=== PATIENT | female | born 1990 | race Caucasian/White ===

== ENCOUNTER → 2017-06-22 23:04 | Observation (INO) ==
--- NOTE | 2017-06-22 19:46 | OB/GYN Progress Note ---
Date of Encounter: 06/22/17 Time of Encounter: 19:20 - Assessment and Plan (1) 37 weeks gestation of Current Visit: Yes Status: Acute - NST assessment. (2) LUQ pain Current Visit: Yes Status: Acute Given location of pain on L side with radiation to L flank side and positive L CVA tenderness, it is possible patient might present with nephrolithiasis. Acute pancreatitis also possibility. Cholecystits unlikely given location of pain and negative martínez's sign. Biliary colic unlikely given duration of pain. Appendicitis unlikely given location of pain and negative McBurney's test. Dyspepsia v. GERD possibility. - PIH labs. - Amylase, lipase - RUQ and retroperitoneum U/S - IV LR 1000 ml bolus - Zofran 4mg IVP - maalox Update: Abdominal U/S reveals Cholelithiasis with dilated common bile duct 6 6 mm. No evidence of wall thickening or pericholecystic fluid. No hydronephrosis. She is afebrile and normotensive. WBC slightly elevated at 17.7 for . Amylase and lipase within normal limits. Small trace of LE in urine. Culture will be done. Mild urine protein. Patient feeling much better after taking maalox and currently denies any pain. Reactive NST. - Ranitidine - Zofran - Diet modification: instructed patient to eat smaller portions and avoid food high in fat. Subjective - Subjective Principal diagnosis: Left upper abdominal pain Interval history: Patient is a 27 yo F and 37 6/7 wks gestation that presents for L upper abdominal pain. She says the pain started 1100 pm last night, a few hours after she had some dinner. She describes it as sharp, constant, radiates to L flank area, and rates it as a 8/10 in pain scale. The pain continued until 930 am in the morning and started again noon, a few hours after eating. She says the pain is not relieved or aggravated by position. She currently does not complain of pain. She admits to nausea and vomiting, but denies any hematemesis. She denies any fever dysuria, hematurea, or diarrhea. She admits to good movement. She denies contractions. Denies vaginal fluid leakage or bleeding. She denies headaches, vision changes, or chest pain. Antepartum ROS: movement normal, no loss of fluid, no vaginal bleeding, no contractions Objective - Vital Signs Vital Signs: Intake and Output 06/22/17 06/22/17 06/22/17 07:59 15:59 23:59 Other: Weight 87.4 kg Patient Weight 06/22/17 23:59 Weight 87.4 kg BP: 126/68 Pulse: 81 FHR: 137 [place]: 20 - Exam FHR: auscultation normal Auscultation: bilateral: normal Abdomen: Present: normal appearance, soft, gravid, tenderness (LUQ tenderness to deep palpation. ), other (Negative Martínez's sign. Negative McBurney's point. ) Comments: Positive CVA tenderness on the L.
[2017-06-22 20:05] LABS: Basophils % 0.2 %; Eosinophils % 0.2 %; Hematocrit 32.5 % (35.3-44.9); Hemoglobin 10.3 g/dL (11.5-15.4); Immature Platelets 6.4 % (1.1-6.1); Lymphocytes # 2.1 K/mcL (0.6-4.6); Lymphocytes % 11.6 %; Mean Corpuscular HGB Conc 31.7 g/dL (31.6-35.5); Mean Corpuscular Hemoglobin 27.5 pg (28.0-33.3); Mean Corpuscular Volume 86.7 fL (83.0-100.0); Mean Platelet Volume 10.8 fL (9.4-12.4); Monocytes # 1.3 K/mcL (0.0-1.3); Monocytes % 7.2 %; Neutrophils # 14.1 K/mcL (1.6-8.9); Platelet Count 295 K/mcL (140-400); Red Blood Count 3.75 M/mcL (3.82-4.97); Red Cell Distribution Width 13.7 % (11.5-14.5); Segmented Neutrophils % 79.8 %
[2017-06-22 20:31] LABS: Alanine Aminotransferase 41 Units/L (0-55); Amylase 92 Units/L (25-125); Aspartate Amino Transferase 86 Units/L (5-34); BUN/Creatinine Ratio 7 (6-26); Lactate Dehydrogenase 264 Units/L (159-327); Lipase 47 Units/L (8-78); Uric Acid 3.1 mg/dL (2.6-6.0); eGFR For African Americans > 60 (> 60); eGFR For Non-African Americans > 60 (> 60)
[2017-06-22 20:35] LABS: Blood Urea Nitrogen 4 mg/dL (7-20)
[2017-06-22 21:29] LABS: Bilirubin,Urine Small (Negative); Blood,Urine Negative (Negative); Clarity,Urine Clear (Clear); Color,Urine Orange (Yellow); Glucose,Urine (UA) Normal (Normal); Ketones,Urine 40 mg/dL (Negative); Leukocyte Esterase,Urine Small (Negative); Nitrite,Urine Negative (Negative); Protein,Urine 30 mg/dL (Neg-Trace); Specific Gravity,Urine 1.024 (1.010-1.025); Urobilinogen,Urine Normal (Normal)
[2017-06-22 21:32] LABS: Bacteria,Urine Few per hpf (None-Few); Hyaline Casts,Urine None Seen per lpf (None-Few); Squamous Epithelial Cell,Urine Many per lpf (None-Few); WBC,Urine 0-3 per hpf (0-3)
[2017-06-22 21:34] LABS: Amphetamine Screen,Urine Negative ng/mL (Cutoff=1000); Barbiturate Screen,Urine Negative ng/mL (Cutoff=200); Benzodiazepines Screen,Urine Negative ng/mL (Cutoff=200); Cannabinoid Screen,Urine Negative ng/mL (Cutoff = 50); Cocaine Screen,Urine Negative ng/mL (Cutoff= 300); Opiate Screen,Urine Negative ng/mL (Cutoff=300); Phencyclidine Screen,Urine Negative ng/mL (Cutoff=25)
--- NOTE | 2017-06-22 22:50 | Discharge Summary ---
Outpatient Proc Discharge Plan - Plan Prescriptions: Ondansetron ODT [Zofran ODT] 4 mg PO Q6H PRN #30 tab.rapdis PRN Reason: Nausea Ranitidine Oral Soln [Zantac] 75 mg PO BID #1 oral.syg Home Medications: Adult Multi Gummies 08/13/15 [History] Folic Acid 4,000 meq 08/13/15 [History] Ondansetron ODT [Zofran ODT] 4 mg PO Q6H PRN #30 tab.rapdis 06/22/17 [Rx] Ranitidine Oral Soln [Zantac] 75 mg PO BID #1 oral.syg 06/22/17 [Rx]
[~2017-06-22 23:04] MED LIST: Mag Hydrox/Al Hydrox/Simeth 30 ML UDC PO PRN; Ondansetron 4 MG/2 ML VIAL IVP PRN; Ringers Solution, Lactated 1,000 ML IVC SCH
[2017-06-23 01:01] LABS: Creatinine,Urine 207 mg/dL; Protein/Creatinine Ratio,Urine 0.15 mg/mg (0-0.20)
== END | disposition home or self-care (01) ==
LOC: 1NENULAB
PROVIDERS: ADMIT Obstetrics & Gynecology; ATTEND Obstetrics & Gynecology

== ENCOUNTER 2017-07-13 08:00 | Inpatient (IN) ==
[2017-07-13] MEDS ORDERED: Famotidine 20 MG/2 ML VIAL IVP PRN (08:17)
[2017-07-13] MEDS ORDERED: *HR* Nalbuphine 20 MG/ML AMPUL IVP PRN (08:17)
[2017-07-13] MEDS ORDERED: Metoclopramide 10 MG/2 ML VIAL IVP PRN (08:17)
[2017-07-13] MEDS ORDERED: Ondansetron 4 MG/2 ML VIAL IVP PRN (08:17)
[2017-07-13] MEDS ORDERED: miSOPROStol 25 MCG TABLET PO ONE ×2 (08:18→18:00)
[2017-07-13] MEDS ORDERED: Ringers Solution, Lactated 1,000 ML IVC SCH (08:30)
[2017-07-13 09:27] LABS: Basophils % 0.2 %; Eosinophils # 0.1 K/mcL (0.0-0.6); Eosinophils % 0.9 %; Hematocrit 31.6 % (35.3-44.9); Hemoglobin 9.8 g/dL (11.5-15.4); Immature Granulocytes % 0.9 % (0-4); Lymphocytes # 2.4 K/mcL (0.6-4.6); Lymphocytes % 17.2 %; Mean Corpuscular Volume 83.8 fL (83.0-100.0); Mean Platelet Volume 10.3 fL (9.4-12.4); Monocytes # 1.4 K/mcL (0.0-1.3); Neutrophils # 9.8 K/mcL (1.6-8.9); Platelet Count 261 K/mcL (140-400); Red Blood Count 3.77 M/mcL (3.82-4.97); Red Cell Distribution Width 14.1 % (11.5-14.5); Segmented Neutrophils % 70.8 %
[2017-07-13 09:34] LABS: Amphetamine Screen,Urine Negative ng/mL (Cutoff=1000); Barbiturate Screen,Urine Negative ng/mL (Cutoff=200); Benzodiazepines Screen,Urine Negative ng/mL (Cutoff=200); Cannabinoid Screen,Urine Negative ng/mL (Cutoff = 50); Cocaine Screen,Urine Negative ng/mL (Cutoff= 300); Opiate Screen,Urine Negative ng/mL (Cutoff=300); Phencyclidine Screen,Urine Negative ng/mL (Cutoff=25)
--- NOTE | 2017-07-13 10:22 | OB/GYN History & Physical ---
Date of Encounter: 07/13/17 Time of Encounter: 10:07 Assessment and Plan (1) 40 weeks gestation of Current visit: Yes Status: Acute (2) Elective induction of labor planned Current visit: Yes Status: Acute - IV fluids. - Nubain - Cytotec. - NPO. - Epidural consult. History of Present Illness Chief complaint: Scheduled induction of labor HPI: Ms. Bettencourt is a 27 year old female at 40 6/7 weeks gestation that presents for scheduled induction of labor. She admits to good movement. She denies any vaginal fluid leakage or bleeding. She denies contractions. She denies any MORELOS, chest pain, nausea, vomiting, fever, chills, dysuria, or diarrhea. HIV Ag/Ab: non-reactive T. Pallidum Ab: negative Rubella Ab: negative Varicella Ab: positive Blood Type: A - HepBSAg: non-reactive (12/30/16) GBS: negative Past Med Surg Social Fam HX - Past Medical History Medical history: no medical history Psychiatric history: no psych history - Past Surgical History Surgical History: no surgical history - Social History Smoking Status: Never smoker Smokeless Tobacco Status: No Alcohol use: none Drug use: none - Family History Mother Adopted: No Family Member Ethnicity: Non- Living Status: Still Living Hx Family Cardiac Disorders: No Hx Family Respiratory Disorders: No Hx Family Cancer: No Hx Family GI Disorders: No Hx Family Genitourinary Disorders: No Hx Family Endocrine Disorder: No Hx Family Musculoskeletal Disorders: No Hx Family Neuromuscular Disorders: No Hx Family Neurologic Disorders: No Hx Family HEENT Disorders: No Hx Family Autoimmune Disorders: No Hx Family Reproductive Disorders: No Hx Family Psychosocial Disorders: No Hx Family Medical Disorders: No Obstetrical History - Pregnancies : 4 Para: 1 Term: 1 : 0 Ab's: 0 Livin Medications and Allergies Adult Multi Gummies 1 tab PO DAILY 08/13/15 [History] Folic Acid 4,000 meq PO DAILY 08/13/15 [History] 3 Allergy/AdvReac Type Severity Reaction Status Date / Time No Known Allergies Allergy Verified 11/04/16 14:17 Exam - Vital Signs Vital signs: BP: 122/70 HR: 85 FHR: 134 [place]: 29 - Constitutional Constitutional: well developed, well nourished, no acute distress, average body habitus - Lungs Respiratory exam: CTAB - Cardiovascular Cardiovascular exam: RRR, +S1, +S2 - Abdomen Abdomen: Present: bowel sounds normal, gravid, non tender - Extremities Extremities exam: full ROM, normal capillary refill, normal inspection, radial pulses palpable and symmetrical Deep Tendon Reflex Grade: 2+ Normal - Cervix Dilation: 3 Effacement: 80 Station: -2 Results Result Diagrams: 07/13/17 09:11 Abnormal lab results WBC 13.9 K/mcL (4.3-11.1) H 07/13/17 09:11 RBC 3.77 M/mcL (3.82-4.97) L 07/13/17 09:11 Hgb 9.8 g/dL (11.5-15.4) L 07/13/17 09:11 Hct 31.6 % (35.3-44.9) L 07/13/17 09:11 MCH 26.0 pg (28.0-33.3) L 07/13/17 09:11 MCHC 31.0 g/dL (31.6-35.5) L 07/13/17 09:11 Neutrophils # 9.8 K/mcL (1.6-8.9) H 07/13/17 09:11 Monocytes # 1.4 K/mcL (0.0-1.3) H 07/13/17 09:11 All other labs normal. - VTE Reasons for not Prescribing Prophylaxis: Treatment not Indicated - Low risk for VTE - Attending Attestation I examined this patient and my medical decision-making was reviewed with the Resident Physician. I agree with the documented findings, disposition and treatment plan. Coty Orourke CNM
[2017-07-13] MEDS ORDERED: Ringers Solution, Lactated 500 ML IVC ONE (12:18)
[2017-07-13] MEDS ORDERED: Epidural Premix (fent/bupiv) 110 ML EP SCH (12:30)
--- NOTE | 2017-07-13 18:40 | Anesthesia Evaluation PreOp ---
Date of Encounter: 07/13/17 Time of Encounter: 18:39 - Past History Planned Operation: SHIMA Cardiac History: Denies any Significant Hx Pulmonary History: Denies Any Significant HX SEO EXPERT History: Denies Any Significant HX Other Medical History: Denies Any Significant HX Anesthesia History: No Prior Anesthetic Complications Alcohol Use: none Drug use: none Medications and Allergies Adult Multi Gummies 1 tab PO DAILY 08/13/15 [History] Folic Acid 4,000 meq PO DAILY 08/13/15 [History] 3 Allergy/AdvReac Type Severity Reaction Status Date / Time No Known Allergies Allergy Verified 11/04/16 14:17 - Meds/Allergy Pre-op Review Medications Reviewed: Yes Allergies Reviewed: Yes Beta Blockers on Current Med List: No Anesthesia Results - Labs 07/13/17 09:11 Anesthesia Exam Height: 1.65m Weight: 89.3kg NPO (# of Hours): 4 Pain Scale: 5 Pain Scale Used: Numeric (1 - 10) - HEENT Pupil (Motor): Pupils equal Mallampati: II Teeth: Normal Oral Opening: Greater than 3 - SEO EXPERT LOC: Oriented SEO EXPERT Motor: Normal RUE, Normal LUE, Normal RLE, Normal LLE, Normal Face SEO EXPERT Sensory: Normal: RUE, LUE, RLE, LLE, Face - Cardiac Rhythm: Regular Murmur: None JVD: No Carotid Bruit: No - Pulmonary Breath Sounds: bilateral Clear Respiratory Effort: Symmetrical Anesthesia Assess/Plan ASA Score: 2 Modified Andi Scale for Level of Consciousness: Cooperative, oriented, and tranquil Anesthetic Plan: General (plan b), Regional (plan a) Autologous Blood: Yes Monitoring Plan: Standard Monitors
--- NOTE | 2017-07-13 19:43 | OB Labor Progress Note ---
Date of Encounter: 07/13/17 Time of Encounter: 19:41 Labor Progress Note - Subjective Subjective: Pt getting slightly more uncomfortable. - Cervix Cervix: /-1 - Heart Tones Heart Tones: RNST - Interventions Interventions: Pt s/p repeat Cytotec a little over an hour ago. - Plan Plan: Expect
[2017-07-13] MEDS ORDERED: Oxytocin 20 units/ LR 1000 mL 20 UNIT/1,000 ML BAG IVC SCH (20:45)
--- NOTE | 2017-07-13 23:07 | OB Labor Progress Note ---
Date of Encounter: 07/13/17 Time of Encounter: 23:06 Labor Progress Note - Subjective Subjective: uc's getting a little stronger - Cervix Cervix: 5-6/90/-1 - Heart Tones Heart Tones: RNST - Quanah Quanah: juanito'sq4-6 min - Plan Plan: Expect
[2017-07-13] MEDS ORDERED: Epidural Premix (fent/bupiv) 110 ML EP ONE (23:28)
--- NOTE | 2017-07-13 23:59 | Anesthesia Procedures ---
Date of Encounter: 07/13/17 Time of Encounter: 23:57 Procedures: Anesthesia - Epidural/Spinal Patient ID/Chart reviewed: Yes Patient examined: Yes OB Eval: Gestational age: 40.6 OB Eval: : 4 OB Eval: Hx Para: 1 OB Eval: Dilated at (cm): 6 OB Eval: Contractions: Non-stressed pattern Consent Obtained: Yes Supplemental Oxygen: None/Room Air Site Prep: Aseptic Technique, Sterile prep and drape, Povidone-Iodine 1% Patient position: upright Local Anesthetic: Lidocaine 1% Amount of Local Anesthetic used: 3 Touhy Needle Gauge: 18 Touhy Needle Depth (cm): 8 Catheter Depth at Skin (cm): 20 Test Dose (1.5% Lido + Epi): Volume given (mls): 5 Test Dose Result: Negative Loading Dose: Other: 10ml of epidural pharm bag premix solution Loading Dose Administered: Thru Catheter Infusion Med: 0.125% Bupivacaine w/ 2 mcg/ml Fentanyl Infusion Rate (mls/hr): 14 ([id number]) Catheter Secured in Place: Tegaderm, Tape Interspace Used: L3-L4 Loss of Resistance (LIZZY): Yes Blood: No CSF: No Paresthesia: No Procedure: pt tolerated procedure well. no complications. vss. fhr stable. see qs for complete vitals. 121/64 hr 76 134/76 hr 85 fhr 131
--- NOTE | 2017-07-14 03:50 | OB/GYN Procedure Note ---
Delivery - Delivery Date: 07/14/17 Provider: Ricardo Dao Intrapartum events: none Delivery induction: misoprostol Delivery monitor: external FHT, internal uterine Anesthesia: epidural Estimated Blood Loss: 300 - (s) Infant A Infant Delivery Date: 07/14/17 Infant Delivery Time: 03:27 Presentation: vertex Position: VINCE Route of delivery: Gender: Male Viability: Viable Pounds: 8 Ounces: 0 at 1 minute: 8 at 5 mins: 8 Shoulder Dystocia: encountered (45 seconds) Shoulder Dystocia Maneuvers: Addie maneuver, suprapubic pressure, Hart Screw maneuver Specimens collected: cord blood Placenta: spontaneous Cord: delivered through nuchal (cord was under shoulders and behind the neck tightly) - Repair Episiotomy: none Laceration Description: Perineal - 2nd Degree - Complications Delivery complications: none - Disposition Mom disposition: stable in LDR disposition: stable in LDR - Comments Comments: Patient status post normal spontaneous vaginal delivery of male infant. Patient progressed to complete and pushed for approximately 10 minutes and there is no evidence of "turtling". After delivery had we did experience a 45 second shoulder dystocia. We initially attempted Addie position and suprapubic pressure. Initially was then able to perform corkscrew maneuver and deliver anterior shoulder. At time of delivery there was a tight nuchal cord which was able to deliver through. The cortex was under both arms and behind the neck it was not going anteriorly. We had spontaneous delivery of placenta which was intact. There was a second degree laceration which was repaired with 3-0 Vicryl under epidural anesthesia. Sponge and instrument counts are
[2017-07-14] MEDS ORDERED: Ibuprofen 600 MG TABLET PO PRN (06:09)
[2017-07-14] MEDS ORDERED: Oxytocin 20 units/ LR 1000 mL 20 UNIT/1,000 ML BAG IVC SCH (06:09)
[2017-07-14] MEDS ORDERED: Measles/Mumps/Rubella Vacc 0.5 ML VIAL SQ PRN (06:09)
[2017-07-14] MEDS ORDERED: Oxytocin 20 units/ LR 1000 mL 20 UNIT/1,000 ML BAG IVC ONE ×2 (06:09→06:16)
[2017-07-14] MEDS ORDERED: Acetaminophen 325 MG TABLET PO PRN (06:09)
[2017-07-14] MEDS ORDERED: Rho Immune Globulin 1,500 UNIT SYRINGE IM PRN (06:09)
[2017-07-14] MEDS: Prenatal Vit/FA 1 EACH TABLET PO SCH (08:32)
[2017-07-15 04:35] LABS: Basophils # 0.1 K/mcL (0.0-0.2); Basophils % 0.3 %; Eosinophils # 0.2 K/mcL (0.0-0.6); Hematocrit 29.2 % (35.3-44.9); Immature Granulocytes % 0.8 % (0-4); Lymphocytes # 3.3 K/mcL (0.6-4.6); Mean Corpuscular HGB Conc 30.8 g/dL (31.6-35.5); Mean Corpuscular Hemoglobin 26.1 pg (28.0-33.3); Mean Corpuscular Volume 84.6 fL (83.0-100.0); Mean Platelet Volume 10.7 fL (9.4-12.4); Monocytes # 1.7 K/mcL (0.0-1.3); Monocytes % 10.1 %; Neutrophils # 11.2 K/mcL (1.6-8.9); Nucleated Red Blood Cells 0.1 /100 WBC (0); Platelet Count 247 K/mcL (140-400); Red Blood Count 3.45 M/mcL (3.82-4.97); Red Cell Distribution Width 14.5 % (11.5-14.5); Segmented Neutrophils % 67.8 %
--- NOTE | 2017-07-15 08:55 | Discharge Summary ---
Date of Encounter: 07/15/17 Time of Encounter: 08:38 - Discharge Diagnosis (1) 40 weeks gestation of Priority: Primary Status: Resolved (2) Status post vaginal delivery Priority: Primary Status: Acute (3) anemia Priority: Primary Status: Acute - Discharge Medications Prescriptions: Docusate [Colace] 100 mg PO BID #300 mls Ferrous Sulfate Oral Soln 300 mg PO DAILY #150 mls Ibuprofen Susp [Motrin Susp] 600 mg PO Q6H PRN #1800 udc PRN Reason: Pain Home Medications: Adult Multi Gummies 1 tab PO DAILY 08/13/15 [History] Docusate [Colace] 100 mg PO BID #300 mls 07/15/17 [Rx] Ferrous Sulfate Oral Soln 300 mg PO DAILY #150 mls 07/15/17 [Rx] Ibuprofen Susp [Motrin Susp] 600 mg PO Q6H PRN #1800 udc 07/15/17 [Rx] Vit/FA 1 each PO DAILY tablet 07/15/17 [Rx] Allergies/Adverse Reactions: 3 Allergy/AdvReac Type Severity Reaction Status Date / Time No Known Allergies Allergy Verified 11/04/16 14:17 Data Procedures and tests throughout hospitalization: Laboratory Tests 07/13/17 07/13/17 07/14/17 08:42 09:11 03:52 WBC 13.9 H RBC 3.77 L Hgb 9.8 L Hct 31.6 L MCV 83.8 MCH 26.0 L MCHC 31.0 L RDW 14.1 Plt Count 261 MPV 10.3 Immature Gran % 0.9 Seg Neutrophils % 70.8 Lymphocytes % 17.2 Monocytes % 10.0 Eosinophils % 0.9 Basophils % 0.2 Neutrophils # 9.8 H Lymphocytes # 2.4 Monocytes # 1.4 H Eosinophils # 0.1 Basophils # 0.0 Nucleated RBCs/100 WBC Urine Opiates Screen Negative Ur Barbiturates Screen Negative Ur Phencyclidine Scrn Negative Ur Amphetamines Screen Negative U Benzodiazepines Scrn Negative Urine Cocaine Screen Negative U Marijuana (THC) Screen Negative Screen NEGATIVE Baby's Blood Type A RH POSITIVE Mother's Blood Type A RH NEGATIVE Rhogam Indicated YES Rhogam Req for Mother 1 07/15/17 04:00 WBC 16.5 H RBC 3.45 L Hgb 9.0 L Hct 29.2 L MCV 84.6 MCH 26.1 L MCHC 30.8 L RDW 14.5 Plt Count 247 MPV 10.7 Immature Gran % 0.8 Seg Neutrophils % 67.8 Lymphocytes % 20.0 Monocytes % 10.1 Eosinophils % 1.0 Basophils % 0.3 Neutrophils # 11.2 H Lymphocytes # 3.3 Monocytes # 1.7 H Eosinophils # 0.2 Basophils # 0.1 Nucleated RBCs/100 WBC 0.1 H Urine Opiates Screen Ur Barbiturates Screen Ur Phencyclidine Scrn Ur Amphetamines Screen U Benzodiazepines Scrn Urine Cocaine Screen U Marijuana (THC) Screen Screen Baby's Blood Type Mother's Blood Type Rhogam Indicated Rhogam Req for Mother Labs on day of discharge: Labs from last 24 hours 07/15/17 07/14/17 04:00 03:52 WBC 16.5 H RBC 3.45 L Hgb 9.0 L Hct 29.2 L MCV 84.6 MCH 26.1 L MCHC 30.8 L RDW 14.5 Plt Count 247 MPV 10.7 Immature Gran % 0.8 Seg Neutrophils % 67.8 Lymphocytes % 20.0 Monocytes % 10.1 Eosinophils % 1.0 Basophils % 0.3 Neutrophils # 11.2 H Lymphocytes # 3.3 Monocytes # 1.7 H Eosinophils # 0.2 Basophils # 0.1 Nucleated RBCs/100 WBC 0.1 H Screen NEGATIVE Baby's Blood Type A RH POSITIVE Mother's Blood Type A RH NEGATIVE Rhogam Indicated YES Rhogam Req for Mother 1 Date of admission: 07/13/17 08:12 Primary care physician: Liudmila Rosa Consults: 07/14/17 06:09 Consult to Visitor Information Assistant [CONS] Routine Comment: Vaginal delivery, consult needed Discharging clinician: Stefano Cooney Anticipated date of discharge: 07/15/17 - Patient Status Disposition: Home, Self-Care Condition: Good Functional capacity at discharge: independent ambulation Overall status at discharge: patient is progressing back to baseline - Discharge Instructions Instructions: Anemia (GEN) - Diet and Activity Activity: resume usual activities as tolerated Diet: regular diet Hospital Course Reason for admission: IUP at term Delivery: Episiotomy: none Laceration: 2nd degree Other procedures: none complications: perineal laceration Discharge diagnosis: IUP at term delivered baby: male Hospital course: Ms. Bettencourt is a 27 year old female who presented at 40 6/7 weeks gestation for scheduled induction of labor. She admitted to good movement. She denied any vaginal fluid leakage or bleeding. She denied contractions. Patient status post normal spontaneous vaginal delivery of male infant. Patient progressed to complete and pushed for approximately 10 minutes and there is no evidence of "turtling". After delivery had we did experience a 45 second shoulder dystocia. We initially attempted Addie position and suprapubic pressure. Initially was then able to perform corkscrew maneuver and deliver anterior shoulder. At time of delivery there was a tight nuchal cord which was able to deliver through. The cortex was under both arms and behind the neck it was not going anteriorly. We had spontaneous delivery of placenta which was intact. There was a second degree laceration which was repaired with 3-0 Vicryl under epidural anesthesia. When seen today, patient says that she is doing well and is in good mood. She says the baby is doing well and that she is breast-feeding him. She has good appetite. She has not had a bowel movement yet, but she has been able to pass gas. She has been able to void. She says that her abdominal cramping has been minimal. Her vaginal bleeding has been light and improving since the delivery. She has been able to ambulate well. Patient has a hemoglobin of 9.0. She denies any headaches, vision changes, fever, chills, shortness of breath, chest pain, nausea, or vomiting. She will be discharged with iron supplements. She has a follow-up appointment with Dr. Dao on 08/17/17. Delivery - Delivery Date: 07/14/17 Provider: Ricardo Dao Intrapartum events: none Delivery induction: misoprostol Delivery monitor: external FHT, internal uterine Anesthesia: epidural Estimated Blood Loss: 300 - Infant (s) A Delivery Date: 07/14/17 Delivery Time: : Presentation: vertex Position: VINCE Route of delivery: Gender: Male Viability: Viable Pounds: 8 Ounces: 0 at 1 minute: 8 at 5 mins: 8 Shoulder Dystocia: encountered (45 seconds) Shoulder Dystocia Maneuvers: Addie maneuver, suprapubic pressure, Hart Screw maneuver Specimens collected: cord blood Placenta: spontaneous Cord: delivered through nuchal (cord was under shoulders and behind the neck tightly) - Repair Episiotomy: none Laceration Description: Perineal - 2nd Degree - Complications Delivery complications: none Time Attestation: Total time spent providing and/or coordinating discharge services: Time Spent: Less than 30 minutes Exam - Constitutional Vitals: Temp Pulse Resp BP Pulse Ox 98.1 F 86 16 112/66 98 07/14/17 20:10 07/14/17 20:10 07/14/17 20:10 07/14/17 20:10 07/14/17 20:10 General appearance IM: A&O X 3, pleasant, no acute distress, answers questions appropriately - Respiratory Respiratory exam: Present: CTAB - Cardiovascular Cardiovascular exam IM: Present: RRR, +S1, +S2 - GI/Abdominal GI/Abdominal exam IM: normal bowel sounds, soft - Uterine Tone: Firm - Extremities Exam Extremities exam IM: Present: normal capillary refill, normal inspection, radial pulses palpable and symmetrical. Absent: pedal edema Additional comments: Pedal pulses intact and symmetrical bilaterally. - Neurological Exam Neurological exam: reflexes normal
[2017-07-15 10:12] VITALS: BP 137/74
[2017-07-15] MEDS: Prenatal Vit/FA 1 EACH TABLET PO SCH (10:31)
== END 2017-07-15 11:15 | disposition home or self-care (01) | DRG 560 ==
LOC: 1NENULAB 08:12 → 1NENUOBS 07-14 06:14
PROVIDERS: ADMIT Obstetrics & Gynecology; ATTEND Obstetrics & Gynecology